=== PATIENT | female | born 1995 | race Two or more races ===

== ENCOUNTER 2016-10-22 01:55 | Outpatient (CLI) | payer OTHER ==
[2016-10-22 02:22] VITALS: BP 120/59; PULSE 86; RESP 16; TEMP 96.3
[2016-10-22 02:36] LABS: Amorphous Sediment,Urine Occasional /hpf; Appearance,Urine Turbid (Clear); Bilirubin,Urine Negative (Negative); Glucose,Urine (UA) Negative (Negative); Ketones,Urine Negative (Negative); Leukocyte Esterase,Urine Large (Negative); Mucus,Urine Rare /hpf; Nitrite,Urine Positive (Negative); PH, Urine 6.5 (5.0-8.0); Particle Count 15084; Protein,Urine 3+ (Negative); RBC,Urine 28 /hpf (0-5); Squamous Epithelial Cell,Urine 4 /hpf (0-4); UA Billing (MACRO vs. MICRO) MICRO; Urobilinogen,Urine <2.0 mg/dL (<2.0); WBC,Urine >182 /hpf (0-5)
== END 2016-10-22 03:12 | disposition home or self-care (01) ==
LOC: FBPOP 01:55
PROVIDERS: ATTEND Obstetrics & Gynecology
DX: O99.89 Other specified diseases and conditions complicating pregnancy, childbirth and the puerperium (principal); R10.2 Pelvic and perineal pain; Z3A.21 21 weeks gestation of pregnancy
CPT/HCPCS: 81001; 99213